=== PATIENT | female | born 1950 | race Caucasian/White ===

== ENCOUNTER 2018-04-24 23:58 | Inpatient (IN) | payer MEDICARE, OTHER ==
[~2018-04-24] VITALS: Ht 160 cm; Wt 99.8 kg
[2018-04-25] VITALS (70 sets, daily range): BP systolic 88–164; BP diastolic 49–96
[2018-04-25] MEDS ORDERED: ONDANSETRON HCL 4MG/2ML INJ IV STA (00:06)
[2018-04-25] MEDS ORDERED: SUCCINYLCHOLINE CHLORIDE 200MG/10ML IV ONE ×2 (00:15→16:01)
[2018-04-25] MEDS ORDERED: PROPOFOL 10MG/ML 100ML 100 ML IV ONE (00:15)
[2018-04-25] MEDS ORDERED: NOREPINEPHRINE 4 MG in DEXT 5% WATER 250 ML IV STA (00:20)
[2018-04-25] MEDS ORDERED: SODIUM CHLORIDE 0.9% 1000ML BAG (SEPSIS BOLUS) IV ONE (00:30)
[2018-04-25] MEDS ORDERED: PIPERACILLIN/TAZ 3.375G PREMIX 50 ML IV ONE (00:30)
[2018-04-25] MEDS ORDERED: NOREPINEPHRINE 4MG/250ML PMX 250 ML IV SCH (00:30)
[2018-04-25] MEDS ORDERED: VANCOMYCIN 1 G PREMIX 200 ML IV ONE (00:30)
[2018-04-25 00:46] LABS: HEMOGLOBIN. 9.5 g/dL (12.0-16.0); MEAN CORPUSCULAR HEMOGLOBIN 28.3 pg (28.0-32.0); MEAN CORPUSCULAR VOLUME 89.1 fL (81.0-99.0); MEAN PLATELET VOLUME 10.1 fl (7.4-10.4); PLATELET 222 x1000/uL (130-400); RED BLOOD CELL COUNT 3.37 mill/uL (4.2-5.4); RED CELL DISTRIBUTION WIDTH 16.7 % (11.6-14.6)
[2018-04-25 00:49] LABS: BG BASE EXCESS -0.2 mmol/L (-2.0-2.0); BG CARBOXYHEMOGLOBIN 0.8 % (0.5-1.5); BG DEOXYHEMOGLOBIN 7.5 % (0.0-5.0); BG FRACTION INSPIRED OXYGEN 100; BG HCO3 ACT 27.3 mmol/L (22.0-26.0); BG METHEMOGLOBIN 0.3 % (0.0-1.5); BG OXYGEN SATURATION 92.4 % (92.0-98.5); BG OXYHEMOGLOBIN 91.4 % (94.0-97.0); BG PCO2 57.5 mmHg (35.0-45.0); BG PH 7.294 (7.350-7.450); BG PO2 71.2 mmHg (75.0-100.0); BG SAMPLE SITE RIGHT BRACHIAL; BG TIDAL VOLUME(mL) 500 mL; BG TOTAL HEMOGLOBIN 12.9 g/dL (12.0-18.0); BG VENT MODE VENT - A/C; BG VENT RATE 16 set
[2018-04-25 00:50] LABS: CHLORIDE 111 mEq/L (98-107)
[2018-04-25 01:22] LABS: PLATELET ESTIMATE NORMAL
[2018-04-25] MEDS ORDERED: SODIUM CHLORIDE 0.9% 1,000 ML IV ONE (02:11)
[2018-04-25] MEDS ORDERED: ASPI-986 PO (04:48)
[2018-04-25] MEDS ORDERED: FURO-151 PO (04:48)
[2018-04-25] MEDS ORDERED: LIP40 PO (04:48)
[2018-04-25] MEDS ORDERED: MULT-230 PO (04:48)
[2018-04-25] MEDS ORDERED: AMLO10TA4 PO (04:48)
[2018-04-25] MEDS ORDERED: METO-539 PO (04:48)
[2018-04-25] MEDS ORDERED: CLON0.1T14 PO (04:48)
[2018-04-25] MEDS ORDERED: NICO-645 TD (04:48)
[2018-04-25] MEDS ORDERED: NOREPINEPHRINE 4 MG in DEXT 5% WATER 246 ML IV PRN (06:00)
[2018-04-25] MEDS: DEXT 5%/0.45% NACL 1000ML 1,000 ML IV SCH ×2 (06:05→21:32)
[2018-04-25] MEDS: ACETAMINOPHEN 325MG TABLET GT PRN (06:07)
[2018-04-25] MEDS: PIPERACILLIN/TAZ 2.25G PREMIX 50 ML IV SCH ×3 (06:57→21:32)
[2018-04-25] MEDS: PROPOFOL 10MG/ML 100ML 100 ML IV PRN ×2 (07:10→14:27)
[2018-04-25] MEDS ORDERED: ONDANSETRON HCL 4MG/2ML INJ IV PRN (08:15)
[2018-04-25] MEDS ORDERED: SODIUM POLYSTYRENE SULFONATE 15 G/60 ML BOT PO SCH (08:15)
[2018-04-25] MEDS ORDERED: IPRATROPIUM/ALBUTEROL 0.5-3(2.5)MG/3ML NEB HHN PRN (08:15)
[2018-04-25] MEDS ORDERED: INSULIN LISPRO 100 UNITS/ML SUBCUT SCH (08:45)
[2018-04-25] MEDS ORDERED: DEXTROSE 50% WATER 50ML SYRINGE IV SCH (08:45)
[2018-04-25] MEDS ORDERED: PIPERACILLIN/TAZOBACTAM 3.375GM/50ML PREMIX IV SCH (09:00)
[2018-04-25] MEDS ORDERED: ALBUMIN HUMAN 25GM/100ML (25%) IV SCH (09:00)
[2018-04-25] MEDS ORDERED: INSULIN REGULAR (HUMULIN R) 300UNITS/3ML IV SCH (09:00)
[2018-04-25] MEDS: PANTOPRAZOLE SODIUM 40 MG/VIAL IV SCH (09:10)
[2018-04-25] MEDS: VANCOMYCIN 1 G PREMIX 200 ML IV SCH (10:36)
[2018-04-25] MEDS ORDERED: IPRATROPIUM/ALBUTEROL 0.5-3(2.5)MG/3ML NEB HHN SCH (12:00)
[2018-04-25 12:34] LABS: CLARITY URINE CLEAR (CLEAR); COLOR URINE YELLOW (YELLOW); KETONES URINE NEGATIVE (NEGATIVE); LEUKOCYTE ESTERASE URINE TRACE (NEGATIVE); NITRITE URINE NEGATIVE (NEGATIVE); OCCULT BLOOD URINE 1+ (NEGATIVE); PROTEIN URINE 1+ (NEGATIVE); SPECIFIC GRAVITY URINE 1.015 (1.005-1.030); UROBILINOGEN URINE 0.2 E.U./dL (0.2-1.0)
[2018-04-25 12:42] LABS: CREATINE KINASE MB FRACTION 1.5 ng/mL (0.5-3.6)
[2018-04-25 13:24] LABS: *AMPHETAMINES SCREEN URINE NEGATIVE (NEGATIVE); *BARBITURATES SCREEN URINE NEGATIVE (NEGATIVE); *BENZODIAZEPINES SCREEN URINE NEGATIVE (NEGATIVE); *COCAINE SCREEN URINE NEGATIVE (NEGATIVE); METHADONE URINE SCREEN NEGATIVE (NEGATIVE)
[2018-04-25 13:26] LABS: CANNABINOID URINE SCREEN NEGATIVE (NEGATIVE); OPIATES URINE SCREEN NEGATIVE (NEGATIVE); PHENCYCLIDINE URINE SCREEN NEGATIVE (NEGATIVE)
[2018-04-25 19:05] LABS: T4 FREE 1.17 ng/dL (0.76-1.46)
[2018-04-25 19:23] LABS: FOLIC ACID (FOLATE) SERUM > 20.00 ng/mL (>5.38)
[2018-04-25 19:31] LABS: VITAMIN B12 SERUM 678 pg/mL (211-911)
[2018-04-25] MEDS: IPRATROPIUM/ALBUTEROL 0.5-3(2.5)MG/3ML NEB HHN SCH (19:44)
[2018-04-26] VITALS (42 sets, daily range): BP systolic 82–157; BP diastolic 48–84
[2018-04-26] MEDS: PROPOFOL 10MG/ML 100ML 100 ML IV PRN ×3 (00:32→20:57)
[2018-04-26] MEDS: IPRATROPIUM/ALBUTEROL 0.5-3(2.5)MG/3ML NEB HHN SCH ×3 (01:41→13:52)
[2018-04-26] MEDS: PIPERACILLIN/TAZ 2.25G PREMIX 50 ML IV SCH ×3 (04:58→20:56)
[2018-04-26 05:40] LABS: EOSINOPHILS % 5.2 % (0.0-5.0); HEMATOCRIT. 25.2 % (36.0-48.0); HEMOGLOBIN. 8.5 g/dL (12.0-16.0); LYMPHOCYTES % 23.6 % (20.0-50.0); MEAN CORPUSCULAR HEMOGLOBIN 29.3 pg (28.0-32.0); MEAN PLATELET VOLUME 10.2 fl (7.4-10.4); MONOCYTES % 10.8 % (2.0-8.0); NEUTROPHILS % 59.4 % (40.0-76.0); PLATELET 151 x1000/uL (130-400); RED CELL DISTRIBUTION WIDTH 16.3 % (11.6-14.6)
[2018-04-26 06:03] LABS: CHLORIDE 111 mEq/L (98-107)
[2018-04-26 06:12] LABS: PHOSPHORUS 3.1 mg/dL (2.5-4.9)
[2018-04-26 06:15] LABS: CREATINE KINASE 155 IU/L (26-192)
[2018-04-26 07:54] LABS: BG BASE EXCESS 6.3 mmol/L (-2.0-2.0); BG CARBOXYHEMOGLOBIN 0.3 % (0.5-1.5); BG DEOXYHEMOGLOBIN 1.1 % (0.0-5.0); BG FRACTION INSPIRED OXYGEN 100; BG HCO3 ACT 30.2 mmol/L (22.0-26.0); BG METHEMOGLOBIN 0.3 % (0.0-1.5); BG OXYGEN SATURATION 98.9 % (92.0-98.5); BG OXYHEMOGLOBIN 98.3 % (94.0-97.0); BG PCO2 40.2 mmHg (35.0-45.0); BG PH 7.493 (7.350-7.450); BG SAMPLE SITE LEFT RADIAL; BG TIDAL VOLUME(mL) 500 mL; BG TOTAL HEMOGLOBIN 8.5 g/dL (12.0-18.0); BG VENT MODE VENT - A/C; BG VENT RATE 18 set
[2018-04-26] MEDS ORDERED: ALBUMIN HUMAN 25GM/100ML (25%) IV NR (09:00)
[2018-04-26] MEDS: DEXT 5%/0.45% NACL 1000ML 1,000 ML IV SCH ×2 (09:13→20:56)
[2018-04-26] MEDS: ASPIRIN 81MG TABLET PO SCH ×2 (09:13→09:24)
[2018-04-26] MEDS: PANTOPRAZOLE SODIUM 40 MG/VIAL IV SCH ×2 (09:13→09:23)
[2018-04-26] MEDS: ENOXAPARIN 30MG/0.3ML SYR SUBCUT SCH ×2 (09:17→20:56)
[2018-04-26 11:03] LABS: T4 FREE 1.12 ng/dL (0.76-1.46)
[2018-04-26] MEDS: QUETIAPINE FUMARATE 25MG TABLET NG SCH ×2 (11:15→20:56)
[2018-04-26] MEDS ORDERED: FENTANYL CITRATE/PF 50MCG/ML 2ML VIAL IV PRN (11:15)
[2018-04-26] MEDS: FLUCONAZOLE 150MG TABLET NG SCH (17:16)
[2018-04-26 19:01] LABS: CREATINE KINASE MB FRACTION 2.3 ng/mL (0.5-3.6)
[2018-04-26] MEDS ORDERED: VANCOMYCIN 1 G PREMIX 200 ML IV SCH (21:00)
[2018-04-27] VITALS (49 sets, daily range): BP systolic 89–181; BP diastolic 50–92
[2018-04-27] MEDS: IPRATROPIUM/ALBUTEROL 0.5-3(2.5)MG/3ML NEB HHN SCH ×5 (00:34→20:15)
[2018-04-27] MEDS: PROPOFOL 10MG/ML 100ML 100 ML IV PRN ×4 (02:55→22:09)
[2018-04-27] MEDS: PIPERACILLIN/TAZ 2.25G PREMIX 50 ML IV SCH ×3 (05:08→21:30)
[2018-04-27 05:58] LABS: BASOPHILS % 0.5 % (0.0-2.0); EOSINOPHILS % 4.7 % (0.0-5.0); HEMATOCRIT. 26.3 % (36.0-48.0); HEMOGLOBIN. 8.8 g/dL (12.0-16.0); LYMPHOCYTES % 22.2 % (20.0-50.0); MEAN CORPUSCULAR HEMOGLOBIN 28.9 pg (28.0-32.0); MEAN CORPUSCULAR VOLUME 86.5 fL (81.0-99.0); MEAN PLATELET VOLUME 10.4 fl (7.4-10.4); MONOCYTES % 10.2 % (2.0-8.0); NEUTROPHILS % 62.4 % (40.0-76.0); PLATELET 150 x1000/uL (130-400); RED BLOOD CELL COUNT 3.03 mill/uL (4.2-5.4); RED CELL DISTRIBUTION WIDTH 15.9 % (11.6-14.6)
[2018-04-27 06:26] LABS: PHOSPHORUS 3.5 mg/dL (2.5-4.9)
[2018-04-27 06:30] LABS: CREATINE KINASE MB FRACTION 1.7 ng/mL (0.5-3.6)
[2018-04-27 07:39] LABS: BG BASE EXCESS 3.7 mmol/L (-2.0-2.0); BG DEOXYHEMOGLOBIN 8.4 % (0.0-5.0); BG HCO3 ACT 27.5 mmol/L (22.0-26.0); BG METHEMOGLOBIN 0.2 % (0.0-1.5); BG OXYGEN SATURATION 91.6 % (92.0-98.5); BG OXYHEMOGLOBIN 91.4 % (94.0-97.0); BG PCO2 38.5 mmHg (35.0-45.0); BG PH 7.472 (7.350-7.450); BG PO2 62.2 mmHg (75.0-100.0); BG SAMPLE SITE RIGHT RADIAL; BG TIDAL VOLUME(mL) 500 mL; BG VENT MODE VENT - A/C; BG VENT RATE 16 set
[2018-04-27] MEDS: FLUCONAZOLE 150MG TABLET NG SCH (08:33)
[2018-04-27] MEDS: ENOXAPARIN 30MG/0.3ML SYR SUBCUT SCH ×2 (08:34→20:47)
[2018-04-27] MEDS: QUETIAPINE FUMARATE 25MG TABLET NG SCH ×2 (08:34→20:48)
[2018-04-27] MEDS: VANCOMYCIN 1 G PREMIX 200 ML IV SCH (09:59)
[2018-04-27] MEDS: DEXT 5%/0.2% NACL 1,000 ML IV SCH (10:11)
[2018-04-27] MEDS ORDERED: PROPOFOL 10MG/ML 100ML 100 ML IV PRN (12:45)
[2018-04-28] VITALS (44 sets, daily range): BP systolic 115–157; BP diastolic 57–96
[2018-04-28] MEDS: IPRATROPIUM/ALBUTEROL 0.5-3(2.5)MG/3ML NEB HHN SCH ×4 (01:54→20:24)
[2018-04-28] MEDS: DEXT 5%/0.2% NACL 1,000 ML IV SCH (02:52)
[2018-04-28 05:33] LABS: BASOPHILS % 0.4 % (0.0-2.0); EOSINOPHILS % 4.5 % (0.0-5.0); HEMATOCRIT. 23.8 % (36.0-48.0); HEMOGLOBIN. 7.9 g/dL (12.0-16.0); LYMPHOCYTES % 20.6 % (20.0-50.0); MEAN CORPUSCULAR HEMOGLOBIN 28.8 pg (28.0-32.0); MEAN CORPUSCULAR VOLUME 86.5 fL (81.0-99.0); MEAN PLATELET VOLUME 10.2 fl (7.4-10.4); MONOCYTES % 8.2 % (2.0-8.0); NEUTROPHILS % 66.3 % (40.0-76.0); PLATELET 134 x1000/uL (130-400); RED BLOOD CELL COUNT 2.75 mill/uL (4.2-5.4)
[2018-04-28 05:59] LABS: PHOSPHORUS 3.5 mg/dL (2.5-4.9)
[2018-04-28] MEDS: PIPERACILLIN/TAZ 2.25G PREMIX 50 ML IV SCH ×3 (06:09→21:56)
[2018-04-28] MEDS: PROPOFOL 10MG/ML 100ML 100 ML IV PRN ×2 (07:49→18:26)
[2018-04-28 07:56] LABS: BG BASE EXCESS 0.7 mmol/L (-2.0-2.0); BG CARBOXYHEMOGLOBIN 0.8 % (0.5-1.5); BG DEOXYHEMOGLOBIN 4.4 % (0.0-5.0); BG FRACTION INSPIRED OXYGEN 50; BG HCO3 ACT 25.1 mmol/L (22.0-26.0); BG METHEMOGLOBIN 0.4 % (0.0-1.5); BG OXYGEN SATURATION 95.5 % (92.0-98.5); BG OXYHEMOGLOBIN 94.4 % (94.0-97.0); BG PCO2 39.2 mmHg (35.0-45.0); BG PH 7.425 (7.350-7.450); BG PO2 79.2 mmHg (75.0-100.0); BG SAMPLE SITE RIGHT RADIAL; BG TIDAL VOLUME(mL) 500 mL; BG TOTAL HEMOGLOBIN 7.9 g/dL (12.0-18.0); BG VENT MODE VENT - A/C; BG VENT RATE 16 set
[2018-04-28] MEDS: QUETIAPINE FUMARATE 25MG TABLET NG SCH ×2 (09:05→20:23)
[2018-04-28] MEDS: ASPIRIN 81MG TABLET PO SCH (09:05)
[2018-04-28] MEDS: ENOXAPARIN 30MG/0.3ML SYR SUBCUT SCH ×2 (09:06→20:23)
[2018-04-28] MEDS: PANTOPRAZOLE SODIUM 40 MG/VIAL IV SCH (09:06)
[2018-04-28] MEDS: ACETAMINOPHEN 325MG TABLET GT PRN (09:07)
[2018-04-28] MEDS: FLUCONAZOLE 150MG TABLET NG SCH (09:48)
[2018-04-28] MEDS ORDERED: POTASSIUM CHLORIDE 20MEQ TABLET SR PO NR (10:30)
[2018-04-28 13:16] LABS: BG BASE EXCESS -1.6 mmol/L (-2.0-2.0); BG DEOXYHEMOGLOBIN 6.2 % (0.0-5.0); BG HCO3 ACT 24.3 mmol/L (22.0-26.0); BG METHEMOGLOBIN 0.1 % (0.0-1.5); BG OXYGEN SATURATION 93.8 % (92.0-98.5); BG OXYHEMOGLOBIN 93.7 % (94.0-97.0); BG PCO2 46.8 mmHg (35.0-45.0); BG PH 7.333 (7.350-7.450); BG PO2 76.8 mmHg (75.0-100.0); BG PRESSURE SUPPORT 14; BG SAMPLE SITE RIGHT RADIAL; BG TIDAL VOLUME(mL) 500 mL; BG TOTAL HEMOGLOBIN 8.3 g/dL (12.0-18.0); BG VENT MODE VENT - SIMV; BG VENT RATE 10 set
[2018-04-28] MEDS: VANCOMYCIN 750 MG PREMIX 150 ML IV SCH (14:24)
[2018-04-28] MEDS: SODIUM CHLORIDE 0.9% 1,000 ML IV SCH (18:14)
[2018-04-29] VITALS (69 sets, daily range): BP systolic 110–183; BP diastolic 61–98
[2018-04-29] MEDS: IPRATROPIUM/ALBUTEROL 0.5-3(2.5)MG/3ML NEB HHN SCH ×4 (02:09→20:19)
[2018-04-29] MEDS: PROPOFOL 10MG/ML 100ML 100 ML IV PRN ×2 (02:55→09:16)
[2018-04-29 05:58] LABS: BASOPHILS % 0.5 % (0.0-2.0); EOSINOPHILS % 4.9 % (0.0-5.0); HEMATOCRIT. 23.2 % (36.0-48.0); HEMOGLOBIN. 7.9 g/dL (12.0-16.0); LYMPHOCYTES % 19.1 % (20.0-50.0); MEAN CORPUSCULAR HEMOGLOBIN 29.3 pg (28.0-32.0); MEAN CORPUSCULAR VOLUME 86.4 fL (81.0-99.0); MEAN PLATELET VOLUME 10.1 fl (7.4-10.4); MONOCYTES % 6.8 % (2.0-8.0); NEUTROPHILS % 68.7 % (40.0-76.0); PLATELET 129 x1000/uL (130-400); RED BLOOD CELL COUNT 2.69 mill/uL (4.2-5.4)
[2018-04-29 06:22] LABS: PHOSPHORUS 2.9 mg/dL (2.5-4.9)
[2018-04-29 07:39] LABS: BG BASE EXCESS 3.4 mmol/L (-2.0-2.0); BG CARBOXYHEMOGLOBIN 0.3 % (0.5-1.5); BG DEOXYHEMOGLOBIN 8.1 % (0.0-5.0); BG FRACTION INSPIRED OXYGEN 50; BG HCO3 ACT 28.2 mmol/L (22.0-26.0); BG METHEMOGLOBIN 0.3 % (0.0-1.5); BG OXYGEN SATURATION 91.9 % (92.0-98.5); BG OXYHEMOGLOBIN 91.3 % (94.0-97.0); BG PCO2 44.2 mmHg (35.0-45.0); BG PH 7.423 (7.350-7.450); BG PO2 68.7 mmHg (75.0-100.0); BG SAMPLE SITE RIGHT RADIAL; BG TIDAL VOLUME(mL) 500 mL; BG TOTAL HEMOGLOBIN 8.1 g/dL (12.0-18.0); BG VENT MODE VENT - A/C; BG VENT RATE 16 set
[2018-04-29] MEDS: PIPERACILLIN/TAZ 2.25G PREMIX 50 ML IV SCH (07:48)
[2018-04-29] MEDS: PANTOPRAZOLE SODIUM 40 MG/VIAL IV SCH (09:14)
[2018-04-29] MEDS: ASPIRIN 81MG TABLET PO SCH (09:15)
[2018-04-29] MEDS: FLUCONAZOLE 150MG TABLET NG SCH (09:15)
[2018-04-29] MEDS: QUETIAPINE FUMARATE 25MG TABLET NG SCH ×2 (09:15→20:31)
[2018-04-29] MEDS: SODIUM CHLORIDE 0.9% 1,000 ML IV SCH (09:16)
[2018-04-29] MEDS: ENOXAPARIN 30MG/0.3ML SYR SUBCUT SCH ×2 (09:20→20:32)
[2018-04-29] MEDS: VANCOMYCIN 750 MG PREMIX 150 ML IV SCH (10:29)
[2018-04-29] MEDS: SODIUM CHLORIDE 0.45% 1,000 ML IV SCH (12:54)
[2018-04-29] MEDS ORDERED: ACETYLCYSTEINE 100MG/ML 10% VIAL 4ML INH SCH ×2 (14:00)
[2018-04-29] MEDS: PIPERACILLIN/TAZ 3.375G PREMIX 50 ML IV SCH ×2 (14:23→20:31)
[2018-04-29] MEDS: FENTANYL CITRATE/PF 500 MCG in SODIUM CHLORIDE 0.9% 40 ML IV PRN ×2 (14:24→20:32)
[2018-04-30] VITALS (73 sets, daily range): BP systolic 119–196; BP diastolic 58–121
[2018-04-30] MEDS: IPRATROPIUM/ALBUTEROL 0.5-3(2.5)MG/3ML NEB HHN SCH ×4 (00:26→20:02)
[2018-04-30] MEDS: PIPERACILLIN/TAZ 3.375G PREMIX 50 ML IV SCH ×4 (03:13→20:38)
[2018-04-30] MEDS: FENTANYL CITRATE/PF 500 MCG in SODIUM CHLORIDE 0.9% 40 ML IV PRN (05:27)
[2018-04-30 05:54] LABS: BASOPHILS % 0.6 % (0.0-2.0); EOSINOPHILS % 3.9 % (0.0-5.0); HEMATOCRIT. 24.1 % (36.0-48.0); HEMOGLOBIN. 7.9 g/dL (12.0-16.0); LYMPHOCYTES % 14.4 % (20.0-50.0); MEAN CORPUSCULAR VOLUME 88.2 fL (81.0-99.0); MEAN PLATELET VOLUME 10.2 fl (7.4-10.4); MONOCYTES % 7.2 % (2.0-8.0); NEUTROPHILS % 73.9 % (40.0-76.0); PLATELET 146 x1000/uL (130-400); RED BLOOD CELL COUNT 2.73 mill/uL (4.2-5.4)
[2018-04-30 06:02] LABS: PHOSPHORUS 3.2 mg/dL (2.5-4.9)
[2018-04-30] MEDS: ACETYLCYSTEINE 100MG/ML 10% VIAL 4ML INH SCH ×2 (07:54→13:27)
[2018-04-30] MEDS: QUETIAPINE FUMARATE 25MG TABLET NG SCH ×2 (08:31→20:38)
[2018-04-30] MEDS: PANTOPRAZOLE SODIUM 40 MG/VIAL IV SCH (08:31)
[2018-04-30] MEDS: FLUCONAZOLE 100MG TABLET NG SCH (08:31)
[2018-04-30] MEDS: ASPIRIN 81MG TABLET PO SCH (08:31)
[2018-04-30] MEDS: ENOXAPARIN 30MG/0.3ML SYR SUBCUT SCH ×2 (08:32→20:38)
[2018-04-30] MEDS: AMLODIPINE 10MG TABLET GT SCH (08:53)
[2018-04-30] MEDS: METOPROLOL TARTRATE 50MG TABLET PO SCH ×2 (08:55→20:38)
[2018-04-30] MEDS ORDERED: MAGNESIUM 2 G PREMIX 50 ML IV NR (09:00)
[2018-04-30] MEDS: SODIUM CHLORIDE 0.45% 1,000 ML IV SCH (09:43)
[2018-04-30 10:49] LABS: BG BASE EXCESS -0.8 mmol/L (-2.0-2.0); BG CARBOXYHEMOGLOBIN 0.4 % (0.5-1.5); BG DEOXYHEMOGLOBIN 2.1 % (0.0-5.0); BG HCO3 ACT 23.4 mmol/L (22.0-26.0); BG METHEMOGLOBIN 0.5 % (0.0-1.5); BG OXYGEN SATURATION 97.9 % (92.0-98.5); BG PCO2 36.6 mmHg (35.0-45.0); BG PH 7.424 (7.350-7.450); BG PO2 108.4 mmHg (75.0-100.0); BG PRESSURE SUPPORT 8; BG SAMPLE SITE RIGHT RADIAL; BG TOTAL HEMOGLOBIN 7.9 g/dL (12.0-18.0); BG VENT MODE VENT - CPAP
[2018-04-30 11:07] LABS: BG FRACTION INSPIRED OXYGEN 50
[2018-04-30] MEDS: VANCOMYCIN 750 MG PREMIX 150 ML IV SCH (11:27)
[2018-04-30] MEDS: CLONIDINE 0.1MG TABLET PO PRN ×2 (11:39→18:04)
[2018-05-01] VITALS (30 sets, daily range): BP systolic 118–189; BP diastolic 25–110
[2018-05-01] MEDS: ACETYLCYSTEINE 100MG/ML 10% VIAL 4ML INH SCH ×2 (01:52→08:13)
[2018-05-01] MEDS: IPRATROPIUM/ALBUTEROL 0.5-3(2.5)MG/3ML NEB HHN SCH ×3 (01:52→21:33)
[2018-05-01] MEDS: PIPERACILLIN/TAZ 3.375G PREMIX 50 ML IV SCH ×4 (03:14→21:10)
[2018-05-01] MEDS: CLONIDINE 0.1MG TABLET PO PRN ×2 (03:42→19:59)
[2018-05-01] MEDS: SODIUM CHLORIDE 0.45% 1,000 ML IV SCH (04:15)
[2018-05-01 05:27] LABS: HEMATOCRIT. 28.5 % (36.0-48.0); HEMOGLOBIN. 9.5 g/dL (12.0-16.0); MEAN CORPUSCULAR HEMOGLOBIN 28.7 pg (28.0-32.0); MEAN CORPUSCULAR VOLUME 86.2 fL (81.0-99.0); MEAN PLATELET VOLUME 9.8 fl (7.4-10.4); PLATELET 180 x1000/uL (130-400); RED BLOOD CELL COUNT 3.31 mill/uL (4.2-5.4); RED CELL DISTRIBUTION WIDTH 15.8 % (11.6-14.6)
[2018-05-01 05:31] LABS: CHLORIDE 108 mEq/L (98-107)
[2018-05-01 05:42] LABS: PHOSPHORUS 2.9 mg/dL (2.5-4.9)
[2018-05-01] MEDS: AMLODIPINE 10MG TABLET GT SCH (08:52)
[2018-05-01] MEDS: PANTOPRAZOLE SODIUM 40 MG/VIAL IV SCH (08:52)
[2018-05-01] MEDS: FLUCONAZOLE 100MG TABLET NG SCH (08:53)
[2018-05-01] MEDS: LOSARTAN POTASSIUM 50 MG TABLET PO SCH (08:53)
[2018-05-01] MEDS: ASPIRIN 81MG TABLET PO SCH (08:53)
[2018-05-01] MEDS: ENOXAPARIN 30MG/0.3ML SYR SUBCUT SCH ×2 (08:54→21:09)
[2018-05-01] MEDS: METOPROLOL TARTRATE 50MG TABLET PO SCH ×2 (08:54→21:10)
[2018-05-01] MEDS: QUETIAPINE FUMARATE 25MG TABLET NG SCH ×2 (08:55→21:10)
[2018-05-01 09:31] LABS: PLATELET ESTIMATE NORMAL
[2018-05-01] MEDS: VANCOMYCIN 750 MG PREMIX 150 ML IV SCH (12:52)
[2018-05-02] VITALS: BP 147/77
[2018-05-02] MEDS: ACETYLCYSTEINE 100MG/ML 10% VIAL 4ML INH SCH ×2 (01:36→13:29)
[2018-05-02] MEDS: IPRATROPIUM/ALBUTEROL 0.5-3(2.5)MG/3ML NEB HHN SCH ×4 (01:38→22:05)
[2018-05-02] MEDS: PIPERACILLIN/TAZ 3.375G PREMIX 50 ML IV SCH ×4 (03:20→20:56)
[2018-05-02 04:00] VITALS: BP 164/100
[2018-05-02 08:00] VITALS: BP 186/86
[2018-05-02] MEDS: ENOXAPARIN 30MG/0.3ML SYR SUBCUT SCH ×2 (09:50→20:35)
[2018-05-02] MEDS: AMLODIPINE 10MG TABLET GT SCH (09:50)
[2018-05-02] MEDS: QUETIAPINE FUMARATE 25MG TABLET NG SCH ×2 (09:50→20:33)
[2018-05-02] MEDS: LOSARTAN POTASSIUM 50 MG TABLET PO SCH ×2 (09:50→20:34)
[2018-05-02] MEDS: FLUCONAZOLE 100MG TABLET NG SCH (09:50)
[2018-05-02] MEDS: PANTOPRAZOLE SODIUM 40 MG/VIAL IV SCH (09:50)
[2018-05-02] MEDS: ASPIRIN 81MG TABLET PO SCH (09:50)
[2018-05-02] MEDS: METOPROLOL TARTRATE 50MG TABLET PO SCH ×2 (09:50→20:34)
[2018-05-02] MEDS: VANCOMYCIN 750 MG PREMIX 150 ML IV SCH (11:03)
[2018-05-02 12:00] VITALS: BP 154/82
[2018-05-02 12:13] LABS: HEMATOCRIT. 28.8 % (36.0-48.0); MEAN CORPUSCULAR HEMOGLOBIN 29.2 pg (28.0-32.0); MEAN CORPUSCULAR VOLUME 84.4 fL (81.0-99.0); MEAN PLATELET VOLUME 8.9 fl (7.4-10.4); PLATELET 285 x1000/uL (130-400); RED BLOOD CELL COUNT 3.41 mill/uL (4.2-5.4); RED CELL DISTRIBUTION WIDTH 15.5 % (11.6-14.6)
[2018-05-02 12:18] LABS: CHLORIDE 108 mEq/L (98-107)
[2018-05-02 13:02] LABS: ATYPICAL LYMPHOCYTES 1
[2018-05-02 13:03] LABS: PLATELET ESTIMATE NORMAL
[2018-05-02] MEDS: HYDRALAZINE HCL 25MG TABLET PO SCH ×2 (14:31→21:00)
[2018-05-02 16:00] VITALS: BP 142/76
[2018-05-02 20:00] VITALS: BP 156/78
[2018-05-03] VITALS: BP 153/67
[2018-05-03] MEDS: ACETYLCYSTEINE 100MG/ML 10% VIAL 4ML INH SCH ×3 (02:37→13:50)
[2018-05-03 04:00] VITALS: BP 171/88
[2018-05-03] MEDS: HYDRALAZINE HCL 25MG TABLET PO SCH (06:47)
[2018-05-03 08:00] VITALS: BP 136/86
[2018-05-03 08:20] LABS: BASOPHILS % 1.2 % (0.0-2.0); EOSINOPHILS % 1.7 % (0.0-5.0); HEMATOCRIT. 34.7 % (36.0-48.0); HEMOGLOBIN. 11.3 g/dL (12.0-16.0); LYMPHOCYTES % 14.9 % (20.0-50.0); MEAN CORPUSCULAR HEMOGLOBIN 28.7 pg (28.0-32.0); MEAN CORPUSCULAR VOLUME 87.9 fL (81.0-99.0); MEAN PLATELET VOLUME 8.6 fl (7.4-10.4); MONOCYTES % 8.7 % (2.0-8.0); NEUTROPHILS % 73.5 % (40.0-76.0); PLATELET 283 x1000/uL (130-400); RED BLOOD CELL COUNT 3.95 mill/uL (4.2-5.4); RED CELL DISTRIBUTION WIDTH 16.2 % (11.6-14.6)
[2018-05-03] MEDS: ASPIRIN 81MG TABLET PO SCH (08:22)
[2018-05-03] MEDS: ENOXAPARIN 30MG/0.3ML SYR SUBCUT SCH ×2 (08:22→20:37)
[2018-05-03] MEDS: METOPROLOL TARTRATE 50MG TABLET PO SCH ×2 (08:24→20:35)
[2018-05-03] MEDS: PANTOPRAZOLE SODIUM 40 MG/VIAL IV SCH (08:24)
[2018-05-03] MEDS: LOSARTAN POTASSIUM 50 MG TABLET PO SCH ×2 (08:24→20:35)
[2018-05-03] MEDS: AMLODIPINE 10MG TABLET GT SCH (08:24)
[2018-05-03] MEDS: QUETIAPINE FUMARATE 25MG TABLET NG SCH ×2 (08:25→20:35)
[2018-05-03 08:26] LABS: CHLORIDE 108 mEq/L (98-107)
[2018-05-03] MEDS: IPRATROPIUM/ALBUTEROL 0.5-3(2.5)MG/3ML NEB HHN SCH ×3 (08:26→22:14)
[2018-05-03 08:32] LABS: PHOSPHORUS 3.1 mg/dL (2.5-4.9)
[2018-05-03 12:00] VITALS: BP 80/68
[2018-05-03] MEDS: HYDRALAZINE HCL 50MG TABLET PO SCH ×2 (14:00→21:04)
[2018-05-03] MEDS ORDERED: FUROSEMIDE 40MG/4ML VIAL IVP NR (14:15)
[2018-05-03 16:00] VITALS: BP 129/87
[2018-05-03 20:00] VITALS: BP 129/78
[2018-05-04] VITALS (7 sets, daily range): BP systolic 127–161; BP diastolic 68–81
[2018-05-04] MEDS: ACETYLCYSTEINE 100MG/ML 10% VIAL 4ML INH SCH ×3 (01:48→14:57)
[2018-05-04] MEDS: IPRATROPIUM/ALBUTEROL 0.5-3(2.5)MG/3ML NEB HHN SCH ×4 (01:49→21:08)
[2018-05-04] MEDS: HYDRALAZINE HCL 50MG TABLET PO SCH ×3 (05:56→22:38)
[2018-05-04 07:28] LABS: HEMATOCRIT. 29.8 % (36.0-48.0); HEMOGLOBIN. 10.1 g/dL (12.0-16.0); MEAN CORPUSCULAR VOLUME 85.9 fL (81.0-99.0); MEAN PLATELET VOLUME 8.8 fl (7.4-10.4); PLATELET 327 x1000/uL (130-400); RED BLOOD CELL COUNT 3.47 mill/uL (4.2-5.4); RED CELL DISTRIBUTION WIDTH 16.1 % (11.6-14.6)
[2018-05-04 07:51] LABS: CHLORIDE 109 mEq/L (98-107)
[2018-05-04 07:56] LABS: PHOSPHORUS 3.8 mg/dL (2.5-4.9)
[2018-05-04] MEDS: QUETIAPINE FUMARATE 25MG TABLET NG SCH ×2 (10:00→22:38)
[2018-05-04] MEDS: PANTOPRAZOLE SODIUM 40 MG/VIAL IV SCH (10:01)
[2018-05-04] MEDS: AMLODIPINE 10MG TABLET GT SCH (10:01)
[2018-05-04] MEDS: METOPROLOL TARTRATE 50MG TABLET PO SCH ×2 (10:01→22:38)
[2018-05-04] MEDS: LOSARTAN POTASSIUM 50 MG TABLET PO SCH ×2 (10:01→22:38)
[2018-05-04] MEDS: ENOXAPARIN 30MG/0.3ML SYR SUBCUT SCH ×2 (10:10→22:38)
[2018-05-04 11:08] LABS: PLATELET ESTIMATE NORMAL
[2018-05-04] MEDS: ASPIRIN 81MG TABLET PO SCH (12:24)
[2018-05-05] VITALS: BP 132/63
[2018-05-05] MEDS: IPRATROPIUM/ALBUTEROL 0.5-3(2.5)MG/3ML NEB HHN SCH ×3 (01:03→21:06)
[2018-05-05] MEDS: ACETYLCYSTEINE 100MG/ML 10% VIAL 4ML INH SCH ×2 (01:03→09:14)
[2018-05-05 04:00] VITALS: BP 108/69
[2018-05-05] MEDS: HYDRALAZINE HCL 50MG TABLET PO SCH ×3 (05:44→22:10)
[2018-05-05 08:00] VITALS: BP 164/80
[2018-05-05] MEDS: METOPROLOL TARTRATE 50MG TABLET PO SCH ×2 (08:50→22:11)
[2018-05-05] MEDS: QUETIAPINE FUMARATE 25MG TABLET NG SCH ×2 (08:50→22:11)
[2018-05-05] MEDS: ASPIRIN 81MG TABLET PO SCH (08:50)
[2018-05-05] MEDS: AMLODIPINE 10MG TABLET GT SCH (08:51)
[2018-05-05] MEDS: PANTOPRAZOLE SODIUM 40 MG/VIAL IV SCH (08:51)
[2018-05-05] MEDS: LOSARTAN POTASSIUM 50 MG TABLET PO SCH ×2 (08:51→22:11)
[2018-05-05] MEDS: ENOXAPARIN 30MG/0.3ML SYR SUBCUT SCH ×2 (08:53→22:10)
[2018-05-05 09:51] LABS: BASOPHILS % 1.3 % (0.0-2.0); EOSINOPHILS % 1.8 % (0.0-5.0); HEMATOCRIT. 28.6 % (36.0-48.0); HEMOGLOBIN. 9.6 g/dL (12.0-16.0); LYMPHOCYTES % 17.1 % (20.0-50.0); MEAN CORPUSCULAR HEMOGLOBIN 28.9 pg (28.0-32.0); MEAN CORPUSCULAR VOLUME 86.1 fL (81.0-99.0); MEAN PLATELET VOLUME 8.7 fl (7.4-10.4); MONOCYTES % 9.6 % (2.0-8.0); NEUTROPHILS % 70.2 % (40.0-76.0); PLATELET 319 x1000/uL (130-400); RED BLOOD CELL COUNT 3.32 mill/uL (4.2-5.4); RED CELL DISTRIBUTION WIDTH 16.3 % (11.6-14.6)
[2018-05-05 10:21] LABS: CHLORIDE 110 mEq/L (98-107)
[2018-05-05 10:27] LABS: PHOSPHORUS 4.3 mg/dL (2.5-4.9)
[2018-05-05 12:00] VITALS: BP 151/58
[2018-05-05 16:00] VITALS: BP 137/85
[2018-05-05 20:00] VITALS: BP 141/83
[2018-05-06] VITALS: BP 103/61
[2018-05-06] MEDS: IPRATROPIUM/ALBUTEROL 0.5-3(2.5)MG/3ML NEB HHN SCH (02:51)
[2018-05-06 04:00] VITALS: BP 149/56
[2018-05-06] MEDS: HYDRALAZINE HCL 50MG TABLET PO SCH ×2 (05:59→16:00)
[2018-05-06 08:00] VITALS: BP 155/73
[2018-05-06] MEDS: LOSARTAN POTASSIUM 50 MG TABLET PO SCH (09:40)
[2018-05-06] MEDS: ENOXAPARIN 30MG/0.3ML SYR SUBCUT SCH (09:40)
[2018-05-06] MEDS: AMLODIPINE 10MG TABLET GT SCH (09:40)
[2018-05-06] MEDS: QUETIAPINE FUMARATE 25MG TABLET NG SCH (09:41)
[2018-05-06] MEDS: METOPROLOL TARTRATE 50MG TABLET PO SCH (09:41)
[2018-05-06] MEDS: PANTOPRAZOLE SODIUM 40 MG/VIAL IV SCH (09:41)
[2018-05-06] MEDS: ASPIRIN 81MG TABLET PO SCH (09:41)
[2018-05-06 10:04] LABS: BASOPHILS % 1.5 % (0.0-2.0); EOSINOPHILS % 1.4 % (0.0-5.0); HEMATOCRIT. 27.7 % (36.0-48.0); HEMOGLOBIN. 9.1 g/dL (12.0-16.0); LYMPHOCYTES % 15.6 % (20.0-50.0); MEAN CORPUSCULAR HEMOGLOBIN 29.3 pg (28.0-32.0); MEAN CORPUSCULAR VOLUME 89.4 fL (81.0-99.0); MEAN PLATELET VOLUME 8.6 fl (7.4-10.4); MONOCYTES % 7.5 % (2.0-8.0); PLATELET 311 x1000/uL (130-400)
[2018-05-06 10:32] LABS: CHLORIDE 116 mEq/L (98-107)
[2018-05-06 10:41] LABS: PHOSPHORUS 3.8 mg/dL (2.5-4.9)
[2018-05-06 12:00] VITALS: BP 3/159
[2018-05-06] MEDS ORDERED: ACETYLCYSTEINE 100MG/ML 10% VIAL 4ML INH SCH (14:00)
[2018-05-06 16:00] VITALS: BP 158/78
[2018-05-06 18:03] VITALS: BP 158/78
== END 2018-05-06 19:45 | DRG 870 ==
LOC: ER 23:58 → MICUSO 04-25 01:34 → EDBEDREQSVC 04-25 01:44 → EDBEDREQ 04-25 01:44 → EDBEDREQTM 04-25 01:44 → ENRESERV 04-25 01:55 → 6EST 05-01 16:41
PROVIDERS: ADMIT Internal Medicine; ATTEND Internal Medicine
PROC: 0BH18EZ Insertion of Endotracheal Airway into Trachea, Via Natural or Artificial Opening Endoscopic (ICD-10-PCS; principal; 2018-04-25)
PROC: 5A1955Z Respiratory Ventilation, Greater than 96 Consecutive Hours (ICD-10-PCS; 2018-04-25)
PROC: 4A10X4Z Monitoring of Central Nervous Electrical Activity, External Approach (ICD-10-PCS; 2018-04-26)
DX: A41.9 Sepsis, unspecified organism (principal); J96.01 Acute respiratory failure with hypoxia; J69.0 Pneumonitis due to inhalation of food and vomit; E43 Unspecified severe protein-calorie malnutrition; G92 Toxic encephalopathy; R65.21 Severe sepsis with septic shock; J96.02 Acute respiratory failure with hypercapnia; I21.4 Non-ST elevation (NSTEMI) myocardial infarction; I50.33 Acute on chronic diastolic (congestive) heart failure; N17.0 Acute kidney failure with tubular necrosis; E87.0 Hyperosmolality and hypernatremia; N17.9 Acute kidney failure, unspecified; E87.3 Alkalosis; I13.0 Hypertensive heart and chronic kidney disease with heart failure and stage 1 through stage 4 chronic kidney disease, or unspecified chronic kidney disease; N39.0 Urinary tract infection, site not specified; B49 Unspecified mycosis; E87.1 Hypo-osmolality and hyponatremia; J44.1 Chronic obstructive pulmonary disease with (acute) exacerbation; Z66 Do not resuscitate; E78.5 Hyperlipidemia, unspecified; E87.5 Hyperkalemia; N26.1 Atrophy of kidney (terminal); B37.9 Candidiasis, unspecified; E66.9 Obesity, unspecified; D64.9 Anemia, unspecified; R62.7 Adult failure to thrive; R13.10 Dysphagia, unspecified; N18.9 Chronic kidney disease, unspecified; E11.22 Type 2 diabetes mellitus with diabetic chronic kidney disease; E78.1 Pure hyperglyceridemia; E83.42 Hypomagnesemia; F32.9 Major depressive disorder, single episode, unspecified; F17.210 Nicotine dependence, cigarettes, uncomplicated; E87.8 Other disorders of electrolyte and fluid balance, not elsewhere classified; N20.0 Calculus of kidney; Z59.0 Homelessness; Z93.1 Gastrostomy status; Z91.81 History of falling; I69.391 Dysphagia following cerebral infarction; Z87.440 Personal history of urinary (tract) infections; Z87.01 Personal history of pneumonia (recurrent); Z82.49 Family history of ischemic heart disease and other diseases of the circulatory system; Z78.1 Physical restraint status; Z68.39 Body mass index [BMI] 39.0-39.9, adult; Z79.82 Long term (current) use of aspirin; Z79.899 Other long term (current) drug therapy
CPT/HCPCS: 31500; 36415; 36600; 70551; 71045; 71250; 74176; 76770; 80048; 80061; 80202; 80305; 82140; 82375; 82550; 82553; 82607; 82746; 82805; 83036; 83605; 83735; 83880; 84100; 84145; 84439; 84443; 84478; 84481; 84484; 85379; 87070; 87106; 87804; 92610; 93005; 93306; 93970; 94002; 94003; 94640; 94667; 96365; 97110; 97163; 97167; 97530; 97535; 99291; A6261; C9113; J0330; J1650; J1815; J1940; J2405; J2543; J2704; J3010; J3370; J3475; J3490; J7030; J7040; J7060; J7608; J7620; P9047; A4315